=== PATIENT | female | born 1950 | race African-American/Black ===

== ENCOUNTER 2021-08-10 04:46 | Observation (INO) ==
[2021-08-10] MEDS ORDERED: LIDOCAINE 2% 5 ML VIAL ONE (06:45)
[2021-08-10] MEDS ORDERED: ONDANSETRON 4 MG/2 ML VIAL ONE (06:45)
[2021-08-10] MEDS ORDERED: SODIUM CHLORIDE 0.9% 0 ML IV ONE (06:45)
[2021-08-10] MEDS ORDERED: propofoL 200 MG/20 ML VIAL IV ONE ×2 (06:45→09:21)
[2021-08-10] MEDS ORDERED: BUPIVACAINE SPINAL 0.75% 2 ML AMP SPINAL ONE (06:45)
[2021-08-10] MEDS ORDERED: MIDAZOLAM 2 MG/2 ML VIAL ONE (06:45)
[2021-08-10] MEDS ORDERED: TRANEXAMIC ACID 1,000 MG/10 ML VIAL ONE (06:45)
[2021-08-10] MEDS ORDERED: KETAMINE 500 MG/10 ML VIAL ONE (06:46)
[2021-08-10] MEDS ORDERED: fentaNYL 100 MCG/2 ML VIAL ONE ×2 (06:46→08:32)
[2021-08-10] MEDS ORDERED: buprenorphine HCL 0.3 MG/ML VIAL ONE (06:46)
[2021-08-10] MEDS ORDERED: DEXAMETHASONE 4 MG/1 ML VIAL ONE (06:52)
[2021-08-10] MEDS ORDERED: ROPIVACAINE 0.5% 30 ML VIAL ONE (06:52)
[2021-08-10 06:55] LABS: INR 0.9; PT Patient Result 10.5 SECS (10.5-12.0); Partial Thromboplastin Time 25.4 SECS (23.8-32.1)
[2021-08-10] MEDS ORDERED: ACETAMINOPHEN 500 MG TABLET PO ONE (07:00)
[2021-08-10] MEDS ORDERED: GABAPENTIN 400 MG CAPSULE PO ONE (07:00)
[2021-08-10] MEDS ORDERED: DIAZEPAM 5 MG TABLET PO ONE (07:00)
[2021-08-10] MEDS ORDERED: FAMOTIDINE 20 MG TABLET PO ONE (07:00)
[2021-08-10] MEDS ORDERED: VANCOMYCIN INJ 1,000 MG in SODIUM CHLORIDE 0.9% 250 ML IV ONE (07:00)
[2021-08-10] MEDS ORDERED: LACTATED RINGERS 1,000 ML IV SCH (07:00)
[2021-08-10] MEDS ORDERED: ROCURONIUM 50 MG/5 ML VIAL IV ONE (07:10)
[2021-08-10] MEDS ORDERED: MAGNESIUM HYDROXIDE SUSP 30 ML UDCUP PO PRN (08:30)
[2021-08-10] MEDS ORDERED: ONDANSETRON 4 MG/2 ML VIAL IV PRN ×2 (08:30→10:00)
[2021-08-10] MEDS ORDERED: PROMETHAZINE 25 MG/1 ML VIAL IM PRN (08:30)
[2021-08-10] MEDS ORDERED: TEMAZEPAM 7.5 MG CAPSULE PO PRN (08:30)
[2021-08-10] MEDS ORDERED: diphenhydrAMINE CAP 25 MG CAPSULE PO PRN (08:30)
[2021-08-10] MEDS ORDERED: BISACODYL 10 MG SUPP RECTAL PRN (08:30)
[2021-08-10] MEDS ORDERED: LACTULOSE 20 GM/30 ML UDCUP PO PRN (08:30)
[2021-08-10] MEDS ORDERED: HydrOXYzine PAMOATE 25 MG CAPSULE PO PRN (08:32)
[2021-08-10] MEDS ORDERED: PANTOPRAZOLE 40 MG TABLET PO PRN (08:32)
[2021-08-10] MEDS ORDERED: ALBUTEROL 2.5 MG/3 ML NEB RESP TX PRN (08:32)
[2021-08-10] MEDS ORDERED: CYCLOBENZAPRINE 10 MG TABLET PO PRN (08:32)
[2021-08-10] MEDS ORDERED: MORPHINE 2 MG/1 ML SYRINGE IV PRN (08:38)
[2021-08-10] MEDS ORDERED: SEVOFLURANE 1 UNIT/15 MINUTE INH ONE ×2 (08:50→09:21)
[2021-08-10] MEDS ORDERED: PHENYLEPHRINE 1 MG/10 ML SYRINGE IV ONE (08:50)
[2021-08-10] MEDS ORDERED: ESMOLOL 100 MG/10 ML VIAL IV ONE (08:53)
[2021-08-10] MEDS ORDERED: NEOSTIGMINE 10 MG/10 ML VIAL ONE (09:49)
[2021-08-10] MEDS ORDERED: GLYCOPYRROLATE 0.4 MG/2 ML VIAL ONE (09:49)
[2021-08-10] MEDS ORDERED: SUGAMMADEX 200 MG/2 ML VIAL IV ONE (09:56)
[2021-08-10] MEDS ORDERED: PROMETHAZINE INJ 25 MG in SODIUM CHLORIDE 0.9% 50 ML IV PRN (10:00)
[2021-08-10] MEDS ORDERED: diphenhydrAMINE 50 MG/1 ML VIAL IV PRN (10:00)
[2021-08-10] MEDS: MEPERIDINE 25 MG/1 ML VIAL IV PRN ×2 (10:00→10:15)
[2021-08-10] MEDS: HYDROmorphone 1 MG/1 ML SYRINGE IV PRN ×2 (11:05→11:10)
[2021-08-10] MEDS ORDERED: hydrALAZINE 20 MG/1 ML VIAL ONE (11:06)
[2021-08-10] MEDS ORDERED: hydrALAZINE 20 MG/1 ML VIAL IV ONE (11:28)
[2021-08-10] MEDS: MORPHINE 2 MG/1 ML SYRINGE IV PRN ×2 (13:50→22:26)
[2021-08-10] MEDS: carvediloL 12.5 MG TABLET PO SCH (16:49)
[2021-08-10] MEDS: ceFAZolin 2,000 MG/50 ML DUPLEX IV SCH (16:49)
[2021-08-10] MEDS: PREGABALIN 75 MG CAPSULE PO SCH ×2 (16:49→20:28)
[2021-08-10] MEDS: DOCUSATE SODIUM 100 MG CAPSULE PO SCH (20:27)
[2021-08-10] MEDS: FONDAPARINUX 2.5 MG/0.5 ML SYRINGE SUBCUT SCH (20:27)
[2021-08-10] MEDS: ZALEPLON 5 MG CAPSULE PO PRN (20:28)
[2021-08-11] MEDS: ceFAZolin 2,000 MG/50 ML DUPLEX IV SCH (00:15)
[2021-08-11 05:35] LABS: Basophils % 0.1 % (0.0-0.8); Eosinophils % 0.3 % (0.00-10.9); Hematocrit 32.4 VOL% (35.7-47.0); Hemoglobin 10.5 GM/DL (12.0-16.0); Immature Granulocytes % 0.3 %; Immature Granulocytes Absolute 0.04 #; Lymphocytes # 1.5 10*3/uL (1.4-4.0); Lymphocytes % 13.3 % (21.3-54.2); Mean Corpuscular HGB Conc 32.4 GM/DL (32-36); Mean Corpuscular Volume 84.4 FL (87-102); Mean Platelet Volume 12.7 FL (9.6-12.0); Monocytes # 1.9 10*3/uL (0.11-0.8); Monocytes % 16.1 % (1.7-12.7); Neutrophils % 69.9 % (38.7-73.9); Platelet Count 150 T/CUMM (130-400); Red Blood Count 3.84 MC/CUMM (3.8-5.5); Red Cell Distribution Width 16.1 % (9.3-17.3); White Blood Count 11.5 T/CUMM (4-12)
[2021-08-11 06:03] LABS: Lymphocytes 15 % (20-55)
[2021-08-11 06:04] LABS: Ovalocytes Few
[2021-08-11 06:05] LABS: Target Cells Slight; Tear Drop Cells Slight
[2021-08-11 06:06] LABS: Total Cells Counted 100
[2021-08-11 06:15] LABS: Calcium 8.3 MG/DL (8.5-10.1); Osmolality,Calculated 285.8 MOS/KG (273-304); Potassium 3.6 MMOL/L (3.5-5.1)
[2021-08-11] MEDS: MORPHINE 2 MG/1 ML SYRINGE IV PRN ×3 (07:21→16:38)
[2021-08-11] MEDS ORDERED: ACETAMINOPHEN 325 MG TABLET PO PRN (08:31)
[2021-08-11] MEDS: DOCUSATE SODIUM 100 MG CAPSULE PO SCH ×2 (09:58→21:07)
[2021-08-11] MEDS: PREGABALIN 75 MG CAPSULE PO SCH ×3 (09:59→21:07)
[2021-08-11] MEDS: carvediloL 12.5 MG TABLET PO SCH ×2 (09:59→16:34)
[2021-08-11] MEDS ORDERED: TUBERCULIN SKIN TEST 0.1 ML SYRINGE INTRADERM ONE (12:00)
[2021-08-11] MEDS: FONDAPARINUX 2.5 MG/0.5 ML SYRINGE SUBCUT SCH (21:07)
[2021-08-11] MEDS: ZALEPLON 5 MG CAPSULE PO PRN (21:07)
[2021-08-12] MEDS: DOCUSATE SODIUM 100 MG CAPSULE PO SCH ×2 (09:26→20:36)
[2021-08-12] MEDS: carvediloL 12.5 MG TABLET PO SCH ×2 (09:26→17:24)
[2021-08-12] MEDS: PREGABALIN 75 MG CAPSULE PO SCH ×3 (09:26→20:36)
[2021-08-12] MEDS: FONDAPARINUX 2.5 MG/0.5 ML SYRINGE SUBCUT SCH (20:36)
[2021-08-13] MEDS: DOCUSATE SODIUM 100 MG CAPSULE PO SCH (09:00)
[2021-08-13] MEDS: carvediloL 12.5 MG TABLET PO SCH (09:01)
[2021-08-13] MEDS: PREGABALIN 75 MG CAPSULE PO SCH (09:01)
[2021-08-13 11:46] VITALS: BP 113/57
== END 2021-08-13 14:59 | disposition swing bed (61) ==
LOC: N.OR 04:46 → N.SDSINP 04:48 → INTOOBSV 08:30 → N.SDSINP 08:30 → N.3E 11:43
PROVIDERS: ADMIT Orthopaedic Surgery; ATTEND Orthopaedic Surgery